=== PATIENT | female | born 1995 | race Hispanic/Latino ===

== ENCOUNTER 2018-12-20 17:27 | Emergency (ER) | payer OTHER, MEDICAID ==
--- NOTE | 2018-12-20 17:47 | Emergency Department Report ---
Blank Doc - Documentation Documentation: This is a 23-year-old female that presents with chest pain, SOB, and syncopal episode. This initial assessment/diagnostic orders/clinical plan/treatment(s) is/are subject to change based on patient's health status, clinical progression and re- assessment by fellow clinical providers in the ED. Further treatment and workup at subsequent clinical providers discretion. Patient/guardians urged not to elope from the ED as their condition may be serious if not clinically assessed and managed. Initial orders include: 1- Patient sent to MAIN ED for further evaluation and treatment 2-EKG 3- labs 4- UA 5- CXR
[2018-12-20 18:27] LABS: Basophils % (Auto) 0.2 % (0.0-1.8); Eosinophils # (Auto) 0.2 K/mm3 (0.0-0.4); Eosinophils % (Auto) 1.4 % (0.0-4.3); Hematocrit 43.1 % (30.3-42.9); Hemoglobin 14.7 gm/dl (10.1-14.3); Lymphocytes # (Auto) 0.7 K/mm3 (1.2-5.4); Lymphocytes % (Auto) 5.4 % (13.4-35.0); Mean Corpuscular HGB Conc 34 % (30-34); Mean Corpuscular Volume 93 fl (79-97); Monocytes % (Auto) 7.8 % (0.0-7.3); Platelet Count 226 K/mm3 (140-440); Red Blood Count 4.62 M/mm3 (3.65-5.03); Red Cell Distribution Width 13.8 % (13.2-15.2)
[2018-12-20 18:39] LABS: INR 0.98 (0.87-1.13)
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
[2018-12-20 18:40] LABS: Partial Thromboplastin Time 26.4 Sec. (24.2-36.6)
[2018-12-20] MEDS ORDERED: NACL 0.9% 1000 ML 1,000 ML IV ONE (18:44)
[2018-12-20 18:47] LABS: BUN/Creatinine Ratio 15; Blood Urea Nitrogen 9 mg/dL (7-17); Calcium 9.3 mg/dL (8.4-10.2); Hemolysis Index 6
[2018-12-20] MEDS ORDERED: ZOFRAN IV ONE (19:50)
[2018-12-20 21:04] VITALS: BP 101/58
--- NOTE | 2018-12-20 21:06 | XRay Report ---
PROCEDURE: XR CHEST ROUTINE 2V TECHNIQUE: 2 views of the chest HISTORY: Chest Pain COMPARISONS: None FINDINGS: Normal heart size. Comment pulmonary outflow tract/AP window. Lungs are mildly hyperlucent No pneumothorax. Hyperexpanded with increased retrosternal clear space. No effusion. Imaged axial skeleton is unremarkable. IMPRESSION: Lung volumes are greater than expected with increased retrosternal clear space. Patient is young for emphysema, consider air-trapping or voluntary larger inspiratory volumes. Prominent AP window/pulmonary outflow tract region. Correlate with physical exam and possibly ECHO. No focal infiltrate or evidence for failure. This document is electronically signed by Lee Ann Lara MD., December 20 2018 09:04:22 PM ET
[2018-12-20] MEDS ORDERED: ZOFRAN ODT ONE (21:12)
[2018-12-20] MEDS ORDERED: ZOFRAN ODT PO ONE (21:15)
[2018-12-20 21:20] LABS: Color,Urine Yellow (Yellow)
[2018-12-20 21:21] LABS: Bacteria,Urine 2+ /HPF (Negative); Bilirubin,Urine NEG (Negative); Blood,Urine LG (Negative); Protein,Urine <15 mg/dL mg/dL (Negative); Urobilinogen,Urine < 2.0 mg/dL (<2.0)
== END 2018-12-20 21:34 | disposition home or self-care (01) ==
LOC: ED 17:27 → EEVIPCON 17:27 → ED 21:34
DX: E86.0 Dehydration (principal); N39.0 Urinary tract infection, site not specified; R07.89 Other chest pain
CPT/HCPCS: 36415; 71046; 80048; 81001; 84484; 84703; 85025; 85379; 85610; 85730; 93005; 93010; 96374; 99284; J2405; J7030; Q0162

== ENCOUNTER 2019-10-27 19:57 | Emergency (ER) | payer MEDICAID, OTHER ==
--- NOTE | 2019-10-27 20:44 | Event Note ---
ED Screening Note Date of service: 10/27/19 Time: 20:40 ED Screening Note: Pt complains of bilateral flank pain and inability to urinate x yesterday states hx of decreased left kidney function +dysuria x 2 days This initial assessment/diagnostic orders/clinical plan/treatment(s) is/are subject to change based on patients health status, clinical progression and re- assessment by fellow clinical providers in the ED. Further treatment and workup at subsequent clinical providers discretion. Patient/guardian urged not to elope from the ED as their condition may be serious if not clinically assessed and managed. Initial orders include: CT labs
[2019-10-27 21:57] LABS: Basophils # (Auto) 0.1 K/mm3 (0.0-0.1); Basophils % (Auto) 0.7 % (0.0-1.8); Eosinophils # (Auto) 0.2 K/mm3 (0.0-0.4); Eosinophils % (Auto) 2.1 % (0.0-4.3); Hematocrit 43.6 % (30.3-42.9); Hemoglobin 14.6 gm/dl (10.1-14.3); Lymphocytes # (Auto) 2.6 K/mm3 (1.2-5.4); Lymphocytes % (Auto) 32.9 % (13.4-35.0); Mean Corpuscular HGB Conc 34 % (30-34); Mean Corpuscular Volume 94 fl (79-97); Platelet Count 232 K/mm3 (140-440); Red Blood Count 4.62 M/mm3 (3.65-5.03); Red Cell Distribution Width 13.5 % (13.2-15.2)
[2019-10-27 22:18] LABS: Alanine Aminotransferase 12 units/L (7-56); Albumin 5.1 g/dL (3.9-5); BUN/Creatinine Ratio 19; Blood Urea Nitrogen 13 mg/dL (7-17); Calcium 9.9 mg/dL (8.4-10.2); Hemolysis Index 7
[2019-10-28 00:24] LABS: Bacteria,Urine 1+ /HPF (Negative); Bilirubin,Urine NEG (Negative); Blood,Urine SM (Negative); Color,Urine Yellow (Yellow); Mucus,Urine FEW /HPF; Protein,Urine <15 mg/dL mg/dL (Negative); Urobilinogen,Urine < 2.0 mg/dL (<2.0)
[2019-10-28 00:32] LABS: HCG Qualitative,Urine Negative (Negative)
[2019-10-28] MEDS ORDERED: KETOROLAC 30 MG/1 ML INJ IV ONE (00:46)
[2019-10-28] MEDS ORDERED: ONDANSETRON 4 MG/2 ML INJ IV ONE (00:46)
[2019-10-28] MEDS ORDERED: SODIUM CHLORIDE 0.9% 1000 ML 1,000 ML IV ONE (00:46)
--- NOTE | 2019-10-28 00:50 | Emergency Department Report ---
ED Female HPI - General Chief complaint: Abdominal Pain Stated complaint: FLANK PAIN/ARM LEG NUMBNESS Time Seen by Provider: 10/27/19 20:39 Source: patient Mode of arrival: Ambulatory Limitations: No Limitations - History of Present Illness Initial comments: Pt complains of bilateral flank pain and inability to urinate x yesterday states hx of decreased left kidney function +dysuria x 2 days, positive nausea and vomiting, negative fever and chills past medical history of depression anxiety. 3 para 2, LMP 10/08/2019+ smoker Complaint: dysuria - Related Data Previous Rx's Medication Instructions Recorded Last Taken Type Nitrofurantoin Monohyd/M-Cryst 100 mg PO BID #14 capsule 12/20/18 Unknown Rx [Macrobid 100 mg Capsule] Ibuprofen [Motrin 600 MG tab] 600 mg PO Q8H PRN #21 tablet 10/28/19 Unknown Rx Allergies Allergy/AdvReac Type Severity Reaction Status Date / Time No Known Allergies Allergy Verified 12/20/18 21:47 ED Review of Systems ROS: Stated complaint: FLANK PAIN/ARM LEG NUMBNESS Other details as noted in HPI ED Past Medical Hx - Past Medical History Previous Medical History?: Yes Hx Renal Disease: Yes Hx Psychiatric Treatment: Yes (anxiety) - Surgical History Past Surgical History?: Yes Additional Surgical History: ovarian cyst - Social History Smoking Status: Current Every Day Smoker Substance Use Type: None - Medications Home Medications: Home Medications Medication Instructions Recorded Confirmed Last Taken Type Nitrofurantoin Monohyd/M-Cryst 100 mg PO BID #14 capsule 12/20/18 Unknown Rx [Macrobid 100 mg Capsule] Ibuprofen [Motrin 600 MG tab] 600 mg PO Q8H PRN #21 tablet 10/28/19 Unknown Rx ED Physical Exam - General Limitations: No Limitations General appearance: alert, in no apparent distress - Head Head exam: Present: atraumatic, normocephalic - Eye Eye exam: Present: normal appearance - ENT ENT exam: Present: mucous membranes dry - Respiratory Respiratory exam: Present: normal lung sounds bilaterally. Absent: respiratory distress - Cardiovascular Cardiovascular Exam: Present: regular rate, normal rhythm. Absent: systolic m urmur, diastolic murmur, rubs, gallop - GI/Abdominal GI/Abdominal exam: Present: soft, tenderness (Suprapubic). Absent: distended - Back Exam Back exam: Present: CVA tenderness (R), CVA tenderness (L) - Neurological Exam Neurological exam: Present: alert, oriented X3 - Psychiatric Psychiatric exam: Present: normal affect, normal mood - Skin Skin exam: Present: warm, dry, intact, normal color. Absent: rash ED Course Vital Signs 10/27/19 20:12 Temperature 98.1 F Pulse Rate 85 Respiratory 18 Rate Blood Pressure 125/73 O2 Sat by Pulse 98 Oximetry ED Medical Decision Making - Lab Data Result diagrams: 10/27/19 21:44 10/27/19 21:44 - Radiology Data Radiology results: report reviewed Patient: NICKO FIELDS#: [id number] : 1995 Acct:[id number] Age/Sex: 24 / F ADM Date: 10/27/19 Loc: ED Attending Dr: Ordering Physician: DAO CHÁVEZ Date of Service: 10/28/19 Procedure(s): CT abdomen pelvis w con Accession Number(s): [id number] cc: DAO CHÁVEZ CT abdomen pelvis w con INDICATION: bilateral flank pain, urinary retention. TECHNIQUE: All CT scans at this location are performed using the following dose modulation technique: Automated exposure control. Helical slices were obtained through the abdomen and pelvis. 100 cc of Omnipaque 300 is administered. COMPARISON: None available. FINDINGS: Abdomen: No acute abnormality is seen in the lower chest. Liver, spleen, pancreas, adrenal glands, and small bowel show no acute abnormality. There are multiple calcifications in both kidneys which appear to be in the renal beds though some of these may be calyceal stones. I suspect this is a combination of nephrocalcinosis and likely some stones in calyces. There is no hydronephrosis. The appendix is unremarkable. Pelvis: There phleboliths in the pelvis. There is a small physiologic appearing cyst in the left ovary. On review of bone windows, no acute osseous abnormalities are seen. IMPRESSION: There are calcifications noted in both kidneys which I suspect represents a combination of nephrocalcinosis as well as some some calyceal stones. There is no hydronephrosis. No ureteral calc wendy are seen. There is no obstruction, inflammation, or free air. Signer Name: Jerry Baires MD Signed: 10/28/2019 2:29 AM Workstation Name: [id number] Transcribed By: SS Dictated By: Jerry Baires MD Electronically Authenticated By: Jerry Baires MD Signed Date/Time: 10/28/19228 DD/ 4 TD/TT: - Medical Decision Making Pt complains of bilateral flank pain and inability to urinate x yesterday states hx of decreased left kidney function +dysuria x 2 days, positive nausea and vomiting, negative fever and chills past medical history of depression anxiety. 3 para 2, LMP 10/08/2019+ smoker Critical care attestation.: If time is entered above; I have spent that time in minutes in the direct care of this critically ill patient, excluding procedure time. ED Disposition Clinical Impression: Nephrocalcinosis, Calyceal renal calculus Disposition: - TO HOME OR SELFCARE Is pt being admited?: No Does the pt Need Aspirin: No Condition: Stable Instructions: Abdominal Pain (ED) Additional Instructions: CT scan shows that you have calcification of your kidneys and possible kidney stone but not obstructing. You need to increase your fluid intake. Take pain medication as needed and follow-up with spray pilot. I have listed 1 below for your convenience Prescriptions: Ibuprofen [Motrin 600 MG tab] 600 mg PO Q8H PRN #21 tablet PRN Reason: Pain Referrals: PRIMARY CARE, [Primary Care Provider] - 3-5 Days ASHLEY IGLESIAS MD [Staff Physician] - 3-5 Days Forms: Work/School Release Form(ED)
--- NOTE | 2019-10-28 02:33 | Cat Scan Report ---
CT abdomen pelvis w con INDICATION: bilateral flank pain, urinary retention. TECHNIQUE: All CT scans at this location are performed using the following dose modulation technique: Automated exposure control. Helical slices were obtained through the abdomen and pelvis. 100 cc of Omnipaque 30 0 is administered. COMPARISON: None available. FINDINGS: Abdomen: No acute abnormality is seen in the lower chest. Liver, spleen, pancreas, adrenal glands, an d small bowel show no acute abnormality. There are multiple calcifications in both kidneys which appe ar to be in the renal beds though some of these may be calyceal stones. I suspect this is a combinati on of nephrocalcinosis and likely some stones in calyces. There is no hydronephrosis. The appendix is unremarkable. Pelvis: There phleboliths in the pelvis. There is a small physiologic appearing cyst in the left ovar y. On review of bone windows, no acute osseous abnormalities are seen. IMPRESSION: There are calcifications noted in both kidneys which I suspect represents a combination of nephrocal cinosis as well as some some calyceal stones. There is no hydronephrosis. No ureteral calculi are see n. There is no obstruction, inflammation, or free air. Signer Name: Jerry Baires MD Signed: 10/28/2019 2:29 AM Workstation Name: [id number]
[2019-10-28 03:41] VITALS: BP 124/72
== END 2019-10-28 03:41 | disposition home or self-care (01) ==
LOC: ED 19:57
DX: N20.0 Calculus of kidney (principal); N29 Other disorders of kidney and ureter in diseases classified elsewhere; F41.9 Anxiety disorder, unspecified; F17.200 Nicotine dependence, unspecified, uncomplicated; Z98.890 Other specified postprocedural states; Z79.899 Other long term (current) drug therapy
CPT/HCPCS: 36415; 74177; 80053; 81001; 81025; 83690; 85025; 96361; 96374; 96375; 99284; J1885; J2405; J7030; Q9967

== ENCOUNTER 2020-05-27 12:35 | Emergency (ER) | payer OTHER ==
[2020-05-27] MEDS ORDERED: diphenhydrAMINE 25 MG CAP PO ONE (14:29)
[2020-05-27] MEDS ORDERED: ACETAMINOPHEN 325 MG TAB PO ONE (14:29)
[2020-05-27] MEDS ORDERED: METOCLOPRAMIDE 10 MG TAB PO ONE (14:29)
--- NOTE | 2020-05-27 14:56 | Emergency Department Report ---
ED Headache HPI - General Chief Complaint: Headache Stated Complaint: SEEING BLACK SPOTS/MIGRAINS/CP/N Time Seen by Provider: 05/27/20 14:07 - History of Present Illness Initial Comments: Patient is a 25-year-old female presents emergency room complaints of headaches that has been going on for several days now. She states that she has a history of migraines. She states that she has been having daily headaches. Patient states that occasionally she sees black spots in her vision and feels lightheaded. She states that she has had intermittent nausea and vomiting throughout her . She is able to tolerate p.o. intake. She states that she is also been having bilateral leg cramping and has pain in her bilateral ca lves. She denies any leg swelling. She states that she also has discomfort in her right ear. Patient is currently 13 weeks . She states that her OB is at [facility]. She denies any abdominal pain or vaginal bleeding. She states her last menstrual cycle was in February. She denies any fever, CP, SOB, neck stiffness, numbness, weakness, bowel or bladder incontinence. She denies any sick contacts or recent travel. She denies any past medical history. No allergies to medications. Allergies/Adverse Reactions: Allergies No Known Allergies Allergy (Verified 12/20/18 21:47) Home Medications: Ambulatory Orders Nitrofurantoin Monohyd/M-Cryst [Macrobid 100 mg Capsule] 100 mg PO BID #14 capsule 12/20/18 Ibuprofen [Motrin 600 MG tab] 600 mg PO Q8H PRN #21 tablet 10/28/19 Metoclopramide [Reglan] 10 mg PO Q8HR PRN #10 tablet 05/27/20 cephALEXin [Keflex] 500 mg PO BID 7 Days #14 cap 05/27/20 diphenhydrAMINE [Benadryl CAP] 25 mg PO Q8HR PRN #10 capsule 05/27/20 ED Review of Systems ROS: Stated complaint: SEEING BLACK SPOTS/MIGRAINS/CP/N Other details as noted in HPI Comment: All other systems reviewed and negative ED Past Medical Hx - Past Medical History Previous Medical History?: Yes Hx Renal Disease: Yes Hx Psychiatric Treatment: Yes (anxiety) - Surgical History Past Surgical History?: Yes Additional Surgical History: ovarian cyst - Social History Smoking Status: Never Smoker Substance Use Type: None - Medications Home Medications: Home Medications Medication Instructions Recorded Confirmed Last Taken Type Nitrofurantoin Monohyd/M-Cryst 100 mg PO BID #14 capsule 12/20/18 Unknown Rx [Macrobid 100 mg Capsule] Ibuprofen [Motrin 600 MG tab] 600 mg PO Q8H PRN #21 tablet 10/28/19 Unknown Rx Metoclopramide [Reglan] 10 mg PO Q8HR PRN #10 tablet 05/27/20 Unknown Rx cephALEXin [Keflex] 500 mg PO BID 7 Days #14 cap 05/27/20 Unknown Rx diphenhydrAMINE [Benadryl CAP] 25 mg PO Q8HR PRN #10 capsule 05/27/20 Unknown Rx ED Physical Exam - General Limitations: No Limitations General appearance: alert, in no apparent distress - Head Head exam: Present: atraumatic, normocephalic - Eye Eye exam: Present: normal appearance, PERRL, EOMI. Absent: conjunctival inj ection, periorbital swelling, periorbital tenderness Pupils: Present: normal accommodation - ENT ENT exam: Present: mucous membranes moist, TM's normal bilaterally, normal external ear exam - Respiratory Respiratory exam: Present: normal lung sounds bilaterally. Absent: respiratory distress, wheezes, rales, rhonchi, stridor, chest wall tenderness, accessory muscle use, decreased breath sounds, prolonged expiratory - Cardiovascular Cardiovascular Exam: Present: regular rate, normal rhythm, normal heart sounds. Absent: systolic murmur, diastolic murmur, rubs, gallop - GI/Abdominal GI/Abdominal exam: Present: soft, normal bowel sounds. Absent: distended, tenderness, guarding, rebound, rigid - Extremities Exam Extremities exam: Present: calf tenderness (bilaterally, no pedal edema, no bony ttp, neurovascularly intact ) - Neurological Exam Neurological exam: Present: alert, oriented X3, CN II-XII intact, normal gait, other (normal finger to nose, normal heel to barros, 5/5 muscle strength in the BUE/BLE, sensation intact throughout, no focal neuro deficit). Absent: motor sensory deficit - Psychiatric Psychiatric exam: Present: normal affect, normal mood - Skin Skin exam: Present: warm, dry, intact ED Course Vital Signs 05/27/20 05/27/20 12:38 17:47 Temperature 98.2 F Pulse Rate 100 H 91 H Respiratory 16 17 Rate Blood Pressure 136/89 Blood Pressure 105/68 [Left] O2 Sat by Pulse 100 98 Oximetry ED Medical Decision Making - Lab Data Result diagrams: 05/27/20 14:39 05/27/20 14:39 Lab Results 05/27/20 05/27/20 05/27/20 Range/Units 14:39 14:39 16:32 WBC 9.7 (4.5-11.0) K/mm3 RBC 4.01 (3.65-5.03) M/mm3 Hgb 12.7 (10.1-14.3) gm/dl Hct 37.8 (30.3-42.9) % MCV 94 (79-97) fl MCH 32 (28-32) pg MCHC 34 (30-34) % RDW 14.7 (13.2-15.2) % Plt Count 245 (140-440) K/mm3 Lymph % (Auto) 23.5 (13.4-35.0) % [place] % (Auto) 9.8 H (0.0-7.3) % Eos % (Auto) 1.2 (0.0-4.3) % Baso % (Auto) 0.5 (0.0-1.8) % Lymph # 2.3 (1.2-5.4) K/mm3 [place] # 1.0 H (0.0-0.8) K/mm3 Eos # 0.1 (0.0-0.4) K/mm3 Baso # 0.0 (0.0-0.1) K/mm3 Seg Neutrophils % 65.0 (40.0-70.0) % Seg Neutrophils # 6.3 (1.8-7.7) K/mm3 Sodium 139 (137-145) mmol/L Potassium 3.3 L (3.6-5.0) mmol/L Chloride 102.9 (98-107) mmol/L Carbon Dioxide 25 (22-30) mmol/L Anion Gap 14 mmol/L BUN 6 L (7-17) mg/dL Creatinine 0.5 L (0.6-1.2) mg/dL Estimated GFR > 60 ml/min BUN/Creatinine Ratio 12 % Glucose 82 (65-100) mg/dL Calcium 8.8 (8.4-10.2) mg/dL Magnesium 1.80 (1.7-2.3) mg/dL Total Bilirubin 0.20 (0.1-1.2) mg/dL AST 11 (5-40) units/L ALT < 5 L (7-56) units/L Alkaline Phosphatase 64 (35-129) units/L Total Creatine Kinase 75 (30-135) units/L Total Protein 6.4 (6.3-8.2) g/dL Albumin 3.8 L (3.9-5) g/dL Albumin/Globulin Ratio 1.5 % Urine Color Yellow (Yellow) Urine Turbidity Slightly-cloudy (Clear) Urine pH 6.0 (5.0-7.0) Ur Specific [place] 1.010 (1.003-1.030) Urine Protein <15 mg/dl (Negative) mg/dL Urine Glucose (UA) Neg (Negative) mg/dL Urine Ketones Neg (Negative) mg/dL Urine Blood Neg (Negative) Urine Nitrite Pos (Negative) Urine Bilirubin Neg (Negative) Urine Urobilinogen < 2.0 (<2.0) mg/dL Ur Leukocyte Esterase Mod (Negative) Urine WBC (Auto) 29.0 H (0.0-6.0) /HPF Urine RBC (Auto) 8.0 (0.0-6.0) /HPF U Epithel Cells (Auto) 7.0 (0-13.0) /HPF Urine Bacteria (Auto) 3+ (Negative) /HPF Urine Mucus Few /HPF Vital Signs 05/27/20 05/27/20 12:38 17:47 Temperature 98.2 F Pulse Rate 100 H 91 H Respiratory 16 17 Rate Blood Pressure 136/89 Blood Pressure 105/68 [Left] O2 Sat by Pulse 100 98 Oximetry - Radiology Data Radiology results: report reviewed DUPLEX DOPPLER LOWER EXTREMITY VEINS, BILATERAL INDICATION / CLINICAL INFORMATION: bilateral calf pain. TECHNIQUE: Duplex doppler imaging was performed through the veins of both lower extremities using venous compression and other maneuvers. COMPARISON: None available. FINDINGS: RIGHT COMMON FEMORAL VEIN: Negative. RIGHT FEMORAL VEIN: Negative. RIGHT POPLITEAL VEIN: Negative. RIGHT CALF VEINS: Negative. LEFT COMMON FEMORAL VEIN: Negative. LEFT FEMORAL VEIN: Negative. LEFT POPLITEAL VEIN: Negative. LEFT CALF VEINS: Negative. ADDITIONAL FINDINGS: None. IMPRESSION: 1. No sonographic evidence for DVT in either lower extremity. Signer Name: Barrett Muro MD Signed: 05/27/2020 3:27 PM Workstation Name: [id number] Transcribed By: SW Dictated By: Barrett Muro MD Electronically Authenticated By: Barrett Muro MD Signed Date/Time: 05/27/201526 DD/ 25 TD/TT: CT head/brain wo con INDICATION / CLINICAL INFORMATION: 25 years Female; TOLBERT, spots in vision. TECHNIQUE: Routine CT head without contrast. All CT scans at this location are performed using CT dose reduction for ALARA by means of automated exposure control. COMPARISON: None. FINDINGS: BRAIN / INTRACRANIAL CONTENTS: The brain demonstrate appropriate attenuation. The ventricular system is within normal limits in size and configuration. There is no CT evidence of acute intracranial hemorrhage or significant mass effect neck ORBITS: No significant abnormality of visualized orbits. SINUSES / MASTOIDS: No significant abnormality in the visualized paranasal sinuses or mastoid air cells. CRANIOCERVICAL JUNCTION: No significant abnormality. ADDITIONAL FINDINGS: None. IMPRESSION: 1. There is no CT evidence of acute intracranial process. Signer Name: Kulwant Lopez MD Signed: 05/27/2020 3:59 PM Workstation Name: [id number] Transcribed By: MR Dictated By: Kulwant Lopez MD Electronically Authenticated By: Kulwant Lopez MD Signed Date/Time: 05/27/201558 DD/ 55 TD/TT: - Medical Decision Making Patient is a 25-year-old female presents emergency room complaints of headaches that has been going on for several days now. She states that she has a history of migraines. She states that she has been having daily headaches. Patient states that occasionally she sees black spots in her vision and feels lightheaded. She states that she has had intermittent nausea and vomiting throughout her . She is able to tolerate p.o. intake. She states that she is also been having bilateral leg cramping and has pain in her bilateral calves. She denies any leg swelling. She states that she also has discomfort in her right ear. Patient is currently 13 weeks . She states that her OB is at [facility]. She denies any abdominal pain or vaginal bleeding. She states her last menstrual cycle was in February. She denies any fever, CP, SOB, neck stiffness, numbness, weakness, bowel or bladder incontinence. She denies any sick contacts or recent travel. She denies any past medical history. No allergies to medications. VSS. on exam: bilateral calf ttp, no edema, neurovascularly intact, no bony ttp, no focal neuro deficits. CT head: 1. There is no CT evidence of acute intracranial process. doppler US LE: 1. No sonographic evidence for DVT in either lower extremity. labs with hypokalemia at 3.3 otherwise normal. UA shows evidence of UTI. pt given kdur, reglan, benadryl, and tylenol while in the ED and headache resolved and she was feeling much better and ready to go home. Discussed all results with patient. Patient given prescription for Keflex, Reglan, Benadryl. advised pt Please take medication as prescribed. Increase your water intake. Follow-up with your primary care doctor. Follow-up with your TOOL ROOM MACHINIST. Follow-up with a neurologist. Return to the emergency room for any new or worsening symptoms. - Differential Diagnosis migraine, AVM, aneurysm, SDH, mass, DVT, dehydration, electrolyte disturban Critical care attestation.: If time is entered above; I have spent that time in minutes in the direct care of this critically ill patient, excluding procedure time. ED Disposition Clinical Impression: Hypokalemia, Bilateral calf pain, Muscle cramping Headache Qualifiers: Headache type: unspecified Headache chronicity pattern: acute headache Intractability: not intractable Qualified Code(s): R51 - Headache Nausea & vomiting Qualifiers: Vomiting type: unspecified Vomiting Intractability: non-intractable Qualified Code(s): R11.2 - Nausea with vomiting, unspecified Visual floaters Qualifiers: Laterality: bilateral Qualified Code(s): H43.393 - Other vitreous opacities, bilateral UTI (urinary tract infection) Qualifiers: Urinary tract infection type: acute cystitis Hematuria presence: without hematuria Qualified Code(s): N30.00 - Acute cystitis without hematuria Disposition: TO HOME OR SELFCARE Is pt being admited?: No Does the pt Need Aspirin: No Condition: Stable Instructions: Urinary Tract Infection in Women (ED), Hypokalemia (ED), Acute Headache (ED) Additional Instructions: Please take medication as prescribed. Increase your water intake. Follow-up with your primary care doctor. Follow-up with your TOOL ROOM MACHINIST. Follow-up with a ne urologist. Return to the emergency room for any new or worsening symptoms. Prescriptions: diphenhydrAMINE [Benadryl CAP] 25 mg PO Q8HR PRN #10 capsule PRN Reason: headache cephALEXin [Keflex] 500 mg PO BID 7 Days #14 cap Metoclopramide [Reglan] 10 mg PO Q8HR PRN #10 tablet PRN Reason: headache Referrals: PRIMARY CARE, [Primary Care Provider] - 2-3 Days PAMELLA CHAMBERS MD [Referring] - 2-3 Days your, java developer architect [Other] - 2-3 Days Time of Disposition: 17:35 Print Language: ROMANIAN
[2020-05-27 15:04] LABS: Basophils % (Auto) 0.5 % (0.0-1.8); Eosinophils # (Auto) 0.1 K/mm3 (0.0-0.4); Eosinophils % (Auto) 1.2 % (0.0-4.3); Hematocrit 37.8 % (30.3-42.9); Hemoglobin 12.7 gm/dl (10.1-14.3); Lymphocytes # (Auto) 2.3 K/mm3 (1.2-5.4); Lymphocytes % (Auto) 23.5 % (13.4-35.0); Mean Corpuscular HGB Conc 34 % (30-34); Mean Corpuscular Volume 94 fl (79-97); Monocytes % (Auto) 9.8 % (0.0-7.3); Platelet Count 245 K/mm3 (140-440); Red Blood Count 4.01 M/mm3 (3.65-5.03); Red Cell Distribution Width 14.7 % (13.2-15.2)
[2020-05-27 15:12] LABS: Albumin 3.8 g/dL (3.9-5); Blood Urea Nitrogen 6 mg/dL (7-17); Calcium 8.8 mg/dL (8.4-10.2); Hemolysis Index 3
[2020-05-27 15:19] LABS: Alanine Aminotransferase < 5 units/L (7-56); BUN/Creatinine Ratio 12
--- NOTE | 2020-05-27 15:31 | Vascular Lab Report ---
DUPLEX DOPPLER LOWER EXTREMITY VEINS, BILATERAL INDICATION / CLINICAL INFORMATION: bilateral calf pain. TECHNIQUE: Duplex doppler imaging was performed through the veins of both lower extremities using venous kate jonatan and other maneuvers. COMPARISON: None available. FINDINGS: RIGHT COMMON FEMORAL VEIN: Negative. RIGHT FEMORAL VEIN: Negative. RIGHT POPLITEAL VEIN: Negative. RIGHT CALF VEINS: Negative. LEFT COMMON FEMORAL VEIN: Negative. LEFT FEMORAL VEIN: Negative. LEFT POPLITEAL VEIN: Negative. LEFT CALF VEINS: Negative. ADDITIONAL FINDINGS: None. IMPRESSION: 1. No sonographic evidence for DVT in either lower extremity. Signer Name: Barrett Muro MD Signed: 05/27/2020 3:27 PM Workstation Name: [email or web address]
[2020-05-27] MEDS ORDERED: POTASSIUM CHLORIDE ER 20 MEQ TAB PO ONE (15:46)
--- NOTE | 2020-05-27 16:04 | Cat Scan Report ---
CT head/brain wo con INDICATION / CLINICAL INFORMATION: 25 years Female; TOLBERT, spots in vision. TECHNIQUE: Routine CT head without contrast. All CT scans at this location are performed using CT dos e reduction for ALARA by means of automated exposure control. COMPARISON: None. FINDINGS: BRAIN / INTRACRANIAL CONTENTS: The brain demonstrate appropriate attenuation. The ventricular system is within normal limits in size and configuration. There is no CT evidence of acute intracranial hemo rrhage or significant mass effect neck ORBITS: No significant abnormality of visualized orbits. SINUSES / MASTOIDS: No significant abnormality in the visualized paranasal sinuses or mastoid air pelon ls. CRANIOCERVICAL JUNCTION: No significant abnormality. ADDITIONAL FINDINGS: None. IMPRESSION: 1. There is no CT evidence of acute intracranial process. Signer Name: Kulwant Lopez MD Signed: 05/27/2020 3:59 PM Workstation Name: [id number]
[2020-05-27 16:59] LABS: Bacteria,Urine 3+ /HPF (Negative); Bilirubin,Urine NEG (Negative); Blood,Urine NEG (Negative); Color,Urine Yellow (Yellow); Mucus,Urine FEW /HPF; Protein,Urine <15 mg/dL mg/dL (Negative); Urobilinogen,Urine < 2.0 mg/dL (<2.0)
[2020-05-27 17:48] VITALS: BP 105/68
== END 2020-05-27 17:47 | disposition home or self-care (01) ==
LOC: ED 12:35
DX: O23.41 Unspecified infection of urinary tract in pregnancy, first trimester (principal); O99.281 Endocrine, nutritional and metabolic diseases complicating pregnancy, first trimester; E87.6 Hypokalemia; O99.351 Diseases of the nervous system complicating pregnancy, first trimester; O99.341 Other mental disorders complicating pregnancy, first trimester; F41.9 Anxiety disorder, unspecified; H43.393 Other vitreous opacities, bilateral; Z3A.13 13 weeks gestation of pregnancy
CPT/HCPCS: 36415; 70450; 80053; 81001; 82550; 83735; 85025; 87076; 87086; 87186; 93970